=== PATIENT | female | born 1950 | race Caucasian/White ===

== ENCOUNTER → 2019-11-09 | Outpatient (CLI) | payer MEDICARE | END | disposition home or self-care (01) | LOC: CFH 14:05 | PROVIDERS: ATTEND Nurse Practitioner Primary Care | DX: Z12.31 Encounter for screening mammogram for malignant neoplasm of breast (principal) | CPT/HCPCS: 77067 ==

== ENCOUNTER → 2020-12-26 | Outpatient (CLI) | payer MEDICARE | END | disposition home or self-care (01) | LOC: CFH 09:31 | PROVIDERS: ATTEND Internal Medicine | DX: Z12.31 Encounter for screening mammogram for malignant neoplasm of breast (principal); M85.88 Other specified disorders of bone density and structure, other site; M81.0 Age-related osteoporosis without current pathological fracture | CPT/HCPCS: 77067; 77080 ==

== ENCOUNTER → 2021-06-10 | Outpatient (CLI) | payer MEDICARE ==
[2021-06-10 11:32] LABS: BASOPHILS % (AUTO) 1 % (0-1); EOSINOPHILS % (AUTO) 1 % (1-7); LYMPHOCYTES % (AUTO) 30 % (22-44); MEAN CORPUSCULAR HEMOGLOBIN 31.1 pg (27.0-34.8); MEAN CORPUSCULAR HGB CONC 33.3 g/dL (32.4-35.8); MEAN PLATELET VOLUME 7.4 fL (7.4-10.4); MONOCYTES % (AUTO) 8 % (2-9); NEUTROPHILS % (AUTO) 59 % (42-75); PLATELET COUNT 221 x10^3/uL (130-400); RED BLOOD COUNT 4.68 x10^6/uL (3.82-5.3); RED CELL DISTRIBUTION WIDTH 13.3 % (9.6-15.2)
[2021-06-10 11:43] LABS: ALBUMIN 3.2 g/dL (3.4-5.0); ANION GAP 6 mmol/L (5-15); CALCIUM 9.1 mg/dL (8.5-10.1); CHLORIDE 108 mmol/L (98-107)
[2021-06-10 11:55] LABS: ALANINE AMINOTRANSFERASE 55 U/L (12-78); ALKALINE PHOSPHATASE 69 U/L (45-117); BILIRUBIN,TOTAL 0.5 mg/dL (0.2-1.0); CHOL/HDL RATIO 2.2; CHOLESTEROL, TOTAL 137 mg/dL (140-239); CREATININE 1.09 mg/dL (0.55-1.02); HDL CHOL % 45 % (28-40); HDL CHOLESTEROL (DIRECT) 61 mg/dL (40-60); LDL CHOLESTEROL,CALCULATED 59 mg/dL (54-169); T4 (THYROXINE) 10.8 mcg/dL (4.8-13.9); TOTAL PROTEIN 7.3 g/dL (6.4-8.2); TRIGLYCERIDES 86 mg/dL (50-200); VLDL CHOLESTEROL 17 mg/dL (0-25)
== END | disposition home or self-care (01) ==
LOC: LAB 11:15
PROVIDERS: ATTEND Nurse Practitioner Primary Care
DX: I10 Essential (primary) hypertension (principal); E78.49 Other hyperlipidemia; M81.0 Age-related osteoporosis without current pathological fracture
CPT/HCPCS: 36415; 80053; 80061; 82306; 84436; 84443; 84481; 85025